=== PATIENT | male | born 1965 | race Caucasian/White ===

== ENCOUNTER 2021-03-29 16:18 | Emergency (ER) | payer MEDICAID, OTHER ==
[~2021-03-29] VITALS: Ht 182.9 cm; Wt 86.2 kg
[~2021-03-29 16:18] MED LIST: ATOR20TA PO
[2021-03-29 16:42] VITALS: BP 103/78
[2021-03-29] MEDS ORDERED: METH4TAB3 PO (16:47)
[2021-03-29] MEDS ORDERED: AZIT250T PO (16:47)
== END 2021-03-29 17:02 | disposition home or self-care (01) ==
LOC: ER 16:23
DX: U07.1 COVID-19 (principal); J12.82 Pneumonia due to coronavirus disease 2019; Z79.899 Other long term (current) drug therapy

== ENCOUNTER 2022-03-26 15:57 | Emergency (ER) | payer MEDICAID ==
[~2022-03-26] VITALS: Ht 182.9 cm; Wt 95.3 kg
[~2022-03-26 15:57] MED LIST changes: +AZIT250T PO; +METH4TAB3 PO
--- NOTE | 2022-03-26 16:20 | NUR ---
PHILIP C/O Urinary retention since last night Referred by urgent care; they cannot put FC per report- referred to ER. AMBULATORY, PLACED ON BED, [id number].
--- NOTE | 2022-03-26 17:01 | NUR ---
[employer] SERVICE ADVISOR. AT BED SIDE, URINE SAMPLE SENT.
[2022-03-26 17:10] LABS: BASOPHILS % (AUTO) 0.3 % (0.0-2.0); EOSINOPHILS % (AUTO) 0.2 % (0.0-6.0); HEMATOCRIT 38 % (39-51); LYMPHOCYTES % (AUTO) 10.8 % (20.0-44.0); MEAN CORPUSCULAR HGB CONC 34 g/dl (31.0-36.0); MEAN CORPUSCULAR VOLUME 91 fL (80-96); MONOCYTES # (AUTO) 0.5 K/uL (0.1-1.30); MONOCYTES % (AUTO) 5.3 % (2.0-12.0); NEUTROPHILS # (AUTO) 7.4 K/uL (1.8-8.9); NEUTROPHILS % (AUTO) 83.4 % (43.0-81.0); PLATELET COUNT (AUTO) 205 K/uL (150-450); RED BLOOD CELL COUNT(AUTO) 4.13 MIL/uL (4.5-6.0); WHITE BLOOD COUNT (AUTO) 8.9 K/uL (4.3-11.0)
[2022-03-26 17:26] LABS: CALCIUM, SERUM 9.1 mg/dL (8.5-10.1); CREATININE 0.8 mg/dL (0.6-1.3); POTASSIUM 3.9 mmol/L (3.5-5.1)
[2022-03-26 17:33] LABS: ALBUMIN 4.2 g/dL (3.4-5.0); BILIRUBIN,DIRECT 0.2 mg/dL (0.0-0.2); BILIRUBIN,TOTAL 0.7 mg/dL (0.2-1.0); TOTAL PROTEIN, SERUM 7.7 g/dL (6.4-8.2)
[2022-03-26 17:38] LABS: BILIRUBIN,URINE NEGATIVE (NEGATIVE); COLOR,URINE YELLOW (YELLOW); LEUKOCYTE ESTERASE ,URINE NEGATIVE (NEGATIVE); NITRITE, URINE NEGATIVE (NEGATIVE); PH,URINE 6.5 (5.0-8.0); PROTEIN,URINE TRACE mg/dl (NEGATIVE); UGLUCOSE NEGATIVE (NEGATIVE); UROBILINOGEN,URINE 0.2 EU/dL (0.2)
[2022-03-26 17:44] LABS: BACTERIA,URINE None seen /HPF (None Seen); RBC,URINE TOO NUMEROUS TO COUN /HPF (0-2); SQUAMOUS EPITHELIAL CELL,UR 0-2 /HPF (None Seen); WBC,URINE 0-2 /HPF (0-3)
--- NOTE | 2022-03-26 17:47 | NUR ---
DR ROSAS CALLED AND TX TO QUINTIN ESTEVEZ
[2022-03-26] MEDS ORDERED: TAMS-12 PO (17:52)
[2022-03-26] MEDS ORDERED: TAMSULOSIN 0.4 MG CAP.SR.24H PO ONE (18:00)
[2022-03-26] MEDS ORDERED: TAMSULOSIN 0.4 MG CAP.SR.24H ONE (18:00)
--- NOTE | 2022-03-26 18:19 | NUR ---
Patient discharged to home in stable condition. Written and verbal after care instructions given. Patient verbalizes understanding of instruction.
[2022-03-26 18:20] VITALS: BP 153/100
== END 2022-03-26 18:20 | disposition home or self-care (01) ==
LOC: ER 15:58
DX: R33.9 Retention of urine, unspecified (principal); E78.00 Pure hypercholesterolemia, unspecified; Z79.899 Other long term (current) drug therapy
CPT/HCPCS: 36415; 80048-TC; 80076-TC; 81001; 85025-TC

== ENCOUNTER 2022-03-29 15:33 | Emergency (ER) | payer MEDICAID ==
[~2022-03-29] VITALS: Ht 182.9 cm; Wt 95.7 kg
[~2022-03-29 15:33] MED LIST changes: +TAMS-12 PO
--- NOTE | 2022-03-29 16:00 | NUR ---
CALLED TO TRIAGE,NOT READY TO COME IN SINCE HE IS ON THE PHONE WITH HIS DOCTOR
--- NOTE | 2022-03-29 17:00 | NUR ---
Anxious- Able to express concerns. instructed on DDBE/Relaxation techniques
--- NOTE | 2022-03-29 18:10 | NUR ---
Felton discontinued as instructed by BRETT Dodson, Urine (Clear) sent to lab
[2022-03-29 18:24] LABS: BILIRUBIN,URINE NEGATIVE (NEGATIVE); COLOR,URINE YELLOW (YELLOW); LEUKOCYTE ESTERASE ,URINE NEGATIVE (NEGATIVE); NITRITE, URINE NEGATIVE (NEGATIVE); PROTEIN,URINE NEGATIVE (NEGATIVE); UGLUCOSE NEGATIVE (NEGATIVE); UROBILINOGEN,URINE 0.2 EU/dL (0.2)
[2022-03-29 18:27] LABS: BACTERIA,URINE None seen /HPF (None Seen); SQUAMOUS EPITHELIAL CELL,UR 0-2 /HPF (None Seen); WBC,URINE 0-2 /HPF (0-3)
[2022-03-29] MEDS ORDERED: KETO5DRO9 EACHEYE (18:46)
[2022-03-29 18:52] VITALS: BP 140/75
--- NOTE | 2022-03-29 18:53 | NUR ---
Patient discharged to home in stable condition. Written and verbal after care instructions given. Patient verbalizes understanding of instruction.
== END 2022-03-29 18:53 | disposition home or self-care (01) ==
LOC: ER 15:50
DX: R33.9 Retention of urine, unspecified (principal); H10.10 Acute atopic conjunctivitis, unspecified eye; J31.0 Chronic rhinitis; R42 Dizziness and giddiness; R31.9 Hematuria, unspecified; Z79.899 Other long term (current) drug therapy
CPT/HCPCS: 81001

== ENCOUNTER 2022-03-30 03:54 | Emergency (ER) | payer MEDICAID ==
[~2022-03-30] VITALS: Ht 182.9 cm; Wt 95.7 kg
[~2022-03-30 03:54] MED LIST changes: +KETO5DRO9 EACHEYE
[2022-03-30 04:00] VITALS: BP 151/73
--- NOTE | 2022-03-30 04:06 | NUR ---
PT DOES NOT WANT TO BE SEEN BY THE ER MD. HE IS ASKING TO BE SEEN BY A UROLOGIST. PT WOULD JUST LIKE TO GO TO A HOSPITAL WITH AN ON DUTY URILOGIST.
== END 2022-03-30 04:14 | disposition left against medical advice (07) ==
LOC: ER 03:56
DX: Z53.21 Procedure and treatment not carried out due to patient leaving prior to being seen by health care provider (principal)

== ENCOUNTER 2023-05-12 20:53 | Emergency (ER) | payer MEDICAID ==
[~2023-05-12] VITALS: Ht 182.9 cm; Wt 94.3 kg
[2023-05-12 21:02] VITALS: BP 131/77; TEMP 98; O2SAT 98
[2023-05-12 22:09] LABS: APPEARANCE,URINE CLEAR (CLEAR); BILIRUBIN,URINE NEGATIVE (NEGATIVE); BLOOD, URINE 2+ Ery/uL (NEGATIVE); COLOR,URINE YELLOW (YELLOW); KETONES,URINE NEGATIVE (NEGATIVE); LEUKOCYTE ESTERASE ,URINE NEGATIVE (NEGATIVE); NITRITE, URINE NEGATIVE (NEGATIVE); PROTEIN,URINE 1+ mg/dl (NEGATIVE); UGLUCOSE NEGATIVE (NEGATIVE)
[2023-05-12 22:14] LABS: ADD URINE CULTURE NO; BACTERIA,URINE None seen /HPF (None Seen); MUCUS,URINE Few /LPF (None Seen); RBC,URINE 21-50 /HPF (0-2); SQUAMOUS EPITHELIAL CELL,UR 0-2 /HPF (None Seen); WBC,URINE 0-2 /HPF (0-3)
== END 2023-05-12 22:17 | disposition home or self-care (01) ==
LOC: ER 20:57
DX: R33.9 Retention of urine, unspecified (principal)
CPT/HCPCS: 81001

== ENCOUNTER 2023-05-18 15:30 | Emergency (ER) | payer MEDICAID ==
[~2023-05-18] VITALS: Ht 182.9 cm; Wt 93.4 kg
[2023-05-18] MEDS ORDERED: ACETAMINOPHEN ES 500 MG TABLET PO ONE (16:30)
[2023-05-18] MEDS ORDERED: ACETAMINOPHEN ES 500 MG TABLET ONE (16:33)
[2023-05-18 16:58] LABS: BASOPHILS % (AUTO) 0.2 % (0.0-2.0); EOSINOPHILS % (AUTO) 0.2 % (0.0-6.0); HEMATOCRIT 40 % (39-51); HEMOGLOBIN 13.5 g/dL (13.5-17.5); LYMPHOCYTES # (AUTO) 0.4 K/uL (0.8-4.8); MEAN CORPUSCULAR HEMOGLOBIN 31 PG (26.0-33.0); MEAN CORPUSCULAR HGB CONC 34 g/dl (31.0-36.0); MEAN CORPUSCULAR VOLUME 93 fL (80-96); MONOCYTES # (AUTO) 0.4 K/uL (0.1-1.30); MONOCYTES % (AUTO) 4.3 % (2.0-12.0); NEUTROPHILS % (AUTO) 91.3 % (43.0-81.0); PLATELET COUNT (AUTO) 188 K/uL (150-450); RED BLOOD CELL COUNT(AUTO) 4.31 MIL/uL (4.5-6.0); WHITE BLOOD COUNT (AUTO) 9.9 K/uL (4.3-11.0)
[2023-05-18 17:05] LABS: CALCIUM, SERUM 9.5 mg/dL (8.5-10.1); CREATININE 0.9 mg/dL (0.6-1.3)
[2023-05-18 17:06] LABS: APPEARANCE,URINE SLIGHTLY CLOUDY (CLEAR); BILIRUBIN,URINE NEGATIVE (NEGATIVE); BLOOD, URINE NEGATIVE Ery/uL (NEGATIVE); KETONES,URINE NEGATIVE (NEGATIVE); LEUKOCYTE ESTERASE ,URINE 1+ (NEGATIVE); NITRITE, URINE POSITIVE (NEGATIVE); PH,URINE 8.5 (5.0-8.0); PROTEIN,URINE TRACE mg/dl (NEGATIVE); UGLUCOSE NEGATIVE (NEGATIVE)
[2023-05-18 17:18] LABS: ADD URINE CULTURE YES; BACTERIA,URINE Many /HPF (None Seen); RBC,URINE 0-2 /HPF (0-2); WBC,URINE 21-50 /HPF (0-3)
[2023-05-18 17:20] LABS: COLOR,URINE LIGHT YELLOW (YELLOW); SQUAMOUS EPITHELIAL CELL,UR Rare /HPF (None Seen)
[2023-05-18] MEDS ORDERED: CEFTRIAXONE 1GM BAG (ER ONLY) 50 ML IV ONE (17:30)
[2023-05-18] MEDS ORDERED: CEFTRIAXONE 1GM BAG (ER ONLY) 1 GM/50 ML PIGGYBACK IV ONE (17:30)
[2023-05-18] MEDS ORDERED: CIPR-262 PO (18:36)
[2023-05-18 18:48] VITALS: BP 115/70; TEMP 100.1; O2SAT 100
== END 2023-05-18 18:45 | disposition home or self-care (01) ==
LOC: ER 15:34
DX: N39.0 Urinary tract infection, site not specified (principal); N40.0 Benign prostatic hyperplasia without lower urinary tract symptoms; Z20.822 Contact with and (suspected) exposure to COVID-19
CPT/HCPCS: 99284; 96365; 87426; 85025; 80048; 87086; 81001; 36415; J0696; C9803

== ENCOUNTER 2023-05-19 23:58 | Emergency (ER) | payer MEDICAID ==
[~2023-05-19] VITALS: Ht 175.3 cm; Wt 93.0 kg
[~2023-05-19 23:58] MED LIST changes: -AZIT250T PO; +CIPR-262 PO; -METH4TAB3 PO
[2023-05-20 01:00] LABS: BASOPHILS % (AUTO) 0.3 % (0.0-2.0); EOSINOPHILS # (AUTO) 0.1 K/uL (0.0-0.7); EOSINOPHILS % (AUTO) 0.9 % (0.0-6.0); HEMATOCRIT 37 % (39-51); HEMOGLOBIN 12.5 g/dL (13.5-17.5); LYMPHOCYTES # (AUTO) 1.1 K/uL (0.8-4.8); LYMPHOCYTES % (AUTO) 10.3 % (20.0-44.0); MEAN CORPUSCULAR HEMOGLOBIN 31 PG (26.0-33.0); MEAN CORPUSCULAR HGB CONC 34 g/dl (31.0-36.0); MEAN CORPUSCULAR VOLUME 92 fL (80-96); MONOCYTES # (AUTO) 0.6 K/uL (0.1-1.30); NEUTROPHILS # (AUTO) 8.7 K/uL (1.8-8.9); NEUTROPHILS % (AUTO) 82.5 % (43.0-81.0); PLATELET COUNT (AUTO) 180 K/uL (150-450); RED CELL DISTRIBUTION WIDTH 13.7 % (11.5-15.0); WHITE BLOOD COUNT (AUTO) 10.6 K/uL (4.3-11.0)
[2023-05-20 01:04] LABS: APPEARANCE,URINE CLEAR (CLEAR); BILIRUBIN,URINE NEGATIVE (NEGATIVE); BLOOD, URINE TRACE-INTA Ery/uL (NEGATIVE); COLOR,URINE YELLOW (YELLOW); KETONES,URINE NEGATIVE (NEGATIVE); LEUKOCYTE ESTERASE ,URINE NEGATIVE (NEGATIVE); NITRITE, URINE NEGATIVE (NEGATIVE); PROTEIN,URINE NEGATIVE (NEGATIVE); UGLUCOSE NEGATIVE (NEGATIVE); UROBILINOGEN,URINE 0.2 EU/dL (0.2)
[2023-05-20 01:13] LABS: CALCIUM, SERUM 9.7 mg/dL (8.5-10.1); CREATININE 0.9 mg/dL (0.6-1.3); POTASSIUM 3.9 mmol/L (3.5-5.1)
[2023-05-20 01:38] VITALS: BP 133/70; TEMP 98.2; O2SAT 97
== END 2023-05-20 01:41 | disposition home or self-care (01) ==
LOC: ER 05-20 00:06
DX: R33.9 Retention of urine, unspecified (principal)
CPT/HCPCS: 36415; 80048-TC; 85025-TC; 87086-TC

== ENCOUNTER 2024-02-29 04:01 | Emergency (ER) | payer MEDICAID ==
[~2024-02-29] VITALS: Ht 182.9 cm; Wt 93.4 kg
[2024-02-29] MEDS ORDERED: LIDOCAINE 2% JEL UROJET 10 ML MM ONE (04:20)
[2024-02-29 05:02] LABS: APPEARANCE,URINE CLEAR (CLEAR); BILIRUBIN,URINE NEGATIVE (NEGATIVE); BLOOD, URINE NEGATIVE Ery/uL (NEGATIVE); COLOR,URINE YELLOW (YELLOW); KETONES,URINE NEGATIVE (NEGATIVE); LEUKOCYTE ESTERASE ,URINE NEGATIVE (NEGATIVE); NITRITE, URINE NEGATIVE (NEGATIVE); PH,URINE 6.5 (5.0-8.0); PROTEIN,URINE NEGATIVE (NEGATIVE); UGLUCOSE NEGATIVE (NEGATIVE); UROBILINOGEN,URINE 0.2 EU/dL (0.2)
[2024-02-29 05:46] VITALS: BP 141/90; TEMP 98; O2SAT 97
== END 2024-02-29 05:46 | disposition home or self-care (01) ==
LOC: ER 04:02
DX: R33.9 Retention of urine, unspecified (principal)
CPT/HCPCS: 99284; 51702; 81003; J3490

== ENCOUNTER 2025-06-18 02:48 | Emergency (ER) | payer MEDICAID ==
[~2025-06-18] VITALS: Ht 175.3 cm; Wt 91.6 kg
[2025-06-18 03:36] LABS: APPEARANCE,URINE CLEAR (CLEAR); BLOOD, URINE 1+ Ery/uL (NEGATIVE); LEUKOCYTE ESTERASE ,URINE NEGATIVE (NEGATIVE); NITRITE, URINE NEGATIVE (NEGATIVE); UGLUCOSE NEGATIVE (NEGATIVE)
[2025-06-18 03:53] LABS: ADD URINE CULTURE NO; SQUAMOUS EPITHELIAL CELL,UR 0-2 /HPF (None Seen)
[2025-06-18 04:04] VITALS: BP 148/85; TEMP 97.2; O2SAT 99
== END 2025-06-18 04:04 | disposition home or self-care (01) ==
LOC: ER 02:54
DX: N40.1 Benign prostatic hyperplasia with lower urinary tract symptoms (principal); R33.8 Other retention of urine; Z46.6 Encounter for fitting and adjustment of urinary device
CPT/HCPCS: 81001